=== PATIENT | female | born 1935 | race Caucasian/White ===

== ENCOUNTER → 2019-07-20 12:23 | Outpatient (CLI) | payer MEDICARE, SELFPAY ==
--- NOTE | 2019-07-20 12:31 | XR_ITS ---
PROCEDURE: XR FOOT WT BEARING LT 3V CLINICAL INDICATION: fracture follow up COMPARISON: XR FOOT LT MIN 3V from 06/20/2019 FINDINGS: There are continued fractures of distal shafts of the 4th and 5th metatarsals. There has been some interval development of medial angulation and increased diastasis of the distal fracture fragment of the 5th metatarsal. Alignment of 4th metatarsal is unchanged. There is diffuse demineralization. 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 Degenerative plantar calcaneal spurring is noted. IMPRESSION: Continued fractures distal 4th and 5th metatarsals with little if any significant interval healing and with some interval medial angulation and increased distraction of the distal 5th metatarsal fracture fragment Dictated by: Duc Rowe 07/20/2019 13:01 Electronically signed by Duc Rowe in [place] 07/20/2019 13:01
== END ==
PROVIDERS: Visit Provider Podiatrist
DX: S92.342A Displaced fracture of fourth metatarsal bone, left foot, initial encounter for closed fracture (principal); S92.355A Nondisplaced fracture of fifth metatarsal bone, left foot, initial encounter for closed fracture; T14.8XXA Other injury of unspecified body region, initial encounter
CPT/HCPCS: 73630

== ENCOUNTER → 2019-08-16 13:45 | Outpatient (CLI) | payer MEDICARE, SELFPAY ==
--- NOTE | 2019-08-16 13:59 | XR_ITS ---
PROCEDURE: XR FOOT WT BEARING LT 3V CLINICAL INDICATION: fracture follow up Pain, follow-up fracture COMPARISON: XR FOOT LT MIN 3V from 06/20/2019 XR FOOT WT BEARING LT 3V from 07/20/2019 FINDINGS: There is diffuse osteopenia with moderate hallux valgus and osteoarthritis of the 1st MTP joint with bunion formation at the distal aspect of the 1st metatarsal. Healing fractures are present involving the distal aspect of the 4th and 5th metatarsals. Increasing callus formation is noted. There remains some medial displacement the distal 5th fracture fragment. Other findings:None. IMPRESSION: Healing 4th and 5th metatarsal fractures Dictated by: Joaquín Allison MD 08/16/2019 14:44 Electronically signed by Joaquín Allison MD in [place] 08/16/2019 14:44
== END ==
PROVIDERS: PCP Emergency Medicine; Visit Provider Podiatrist
DX: S92.355G Nondisplaced fracture of fifth metatarsal bone, left foot, subsequent encounter for fracture with delayed healing (principal)
CPT/HCPCS: 73630

== ENCOUNTER → 2019-08-24 13:23 | Outpatient (CLI) | payer MEDICARE, SELFPAY ==
--- NOTE | 2019-08-24 | US_ITS ---
PROCEDURE: MM DIG MAMM DX UNILAT LT CAD Digital Breast Tomosynthesis Included CLINICAL INDICATION: invetrted nipple palpable mass left breast, prior left lumpectomy. COMPARISON: Mammo Diagnostic Bilat from 12/26/2017 Mammo Diagnostic Bilat from 02/02/2019 US BREAST LT COMPLETE from 08/24/2019 TECHNIQUE: Standard CC and MLO images and 3D Tomosynthesis was obtained. R2 CAD reviewed. Left breast ultrasound with axilla FINDINGS: There is average fibroglandular tissue. There postsurgical changes in the mid aspect of the left breast with clips and multiple benign-appearing calcifications. There is an oval area of fat density with a fat fluid level in the mid aspect of the left breast. This measures 3 by 1.9 cm. There is some retraction of surrounding tissue at this area. This did have a similar appearance on the mammogram of 02/02/2019. The nipple is inverted which also had a similar appearance on the previous exam. Surgical clips are present in the axilla. Left breast ultrasound: There is a ill-defined hypoechoic area in the 12 o'clock region left breast near the nipple measuring 3 x 1.5 cm likely corresponding to the lesion described on the mammogram with a fat fluid level. This likely represents a hematoma. There are surgical clips in this area on the ultrasound as well. IMPRESSION: Postsurgical changes of the left breast as described above. No convincing evidence of malignancy. Probably benign findings. Suggest 6 month mammogram and sonographic follow-up BI-RAD Category: 3 Probably Benign Finding Short Term Follow-up FOLLOW-UP: 6M 6Month Follow-up (A letter has been sent to the patient regarding results of the study.) Dictated by: Joaquín Allison MD 09/01/2019 09:08 Electronically signed by Joaquín Allison MD in [place] 09/01/2019 09:08
== END ==
PROVIDERS: PCP Emergency Medicine; Visit Provider Nurse Practitioner Family
DX: C50.919 Malignant neoplasm of unspecified site of unspecified female breast (principal); N64.59 Other signs and symptoms in breast
CPT/HCPCS: 76641; 77061; 77065; G0279

== ENCOUNTER 2019-08-31 11:56 | Observation (INO) | payer MEDICARE, SELFPAY ==
[2019-08-31 11:57] VITALS: BP 132/85; PULSE 80; RESP 20; TEMP 37; O2SAT 98; BMI 25.8
[2019-08-31 12:02] VITALS: BMI 25.8
[2019-08-31 12:20] LABS: Basophils # 0.1 K/mm3 (0-0.2); Basophils % 0.9 % (0.1-2.0); Eosinophils # 0.2 K/mm3 (0.0-0.4); Eosinophils % 2.6 % (0.1-12.0); Hematocrit 47.4 % (37.0-47.0); Hemoglobin 15.3 g/dL (12.2-16.2); Lymphocytes # 2.6 K/mm3 (0.7-4.5); Lymphocytes % 37.9 % (10-50); Mean Corpuscular HGB Conc 32.2 g/dL (31.8-35.4); Mean Corpuscular Volume 93.1 fl (81-99); Mean Platelet Volume 7.9 fl (7.4-10.4); Monocytes # 0.5 K/mm3 (0.1-1.0); Neutrophils # 3.5 K/mm3 (1.8-7.8); Neutrophils % 51.5 % (37.0-80.0); Platelet Count 382 K/mm3 (142-424); Red Blood Count 5.09 M/mm3 (4.20-5.40); Red Cell Distribution Width 13.8 % (11.5-17.5); White Blood Count 6.8 K/mm3 (4.8-10.8)
[2019-08-31 12:25] LABS: Chloride 98 mmol/L (98-107); Potassium 3.5 mmoL/L (3.5-5.1); Sodium 138 mmol/L (136-145)
[2019-08-31 12:28] LABS: Alanine Aminotransferase 20 U/L (12-78); Albumin Level 4.8 g/dl (3.5-5.0); Albumin/Globulin Ratio 1.5 (1.1-1.8); Alkaline Phosphatase 101 U/L (38-126); Aspartate Amino Transferase 31 U/L (14-36); Bilirubin,Total 0.5 mg/dl (0.2-1.3); Blood Urea Nitrogen 8 mg/dl (7-17); Calcium 9.9 mg/dl (8.4-10.2); Carbon Dioxide 34 mmol/L (22.0-30.0); Creatinine Clearance Estimated 48 mL/min (50-200); Estimated Glomerular Filt Rate 118 ml/min (>60); GFR (African American) 142 ML/MIN (>60); Globulin 3.1 g/dL (1.3-3.2); Glucose 140 mg/dl (74-100); Lactic Acid 1.6 mmol/L (0.7-2.1); Total Protein,Serum 7.9 g/dl (6.3-8.2)
[2019-08-31 12:29] LABS: Ethyl Alcohol < 10 mg/dl (0-10)
--- NOTE | 2019-08-31 13:03 | HMH.EDGENADL ---
ED Disposition Clinical Impression: Anxiety Disposition: Home, Self-Care Condition on Discharge: Good Instructions: DI for Altered Mental Status Referrals: Shamar Hoover MD [Primary Care Provider] - - Critical Care Critical Care Time: No Attestation: On 08/31/19, the high probability of a clinically significant, sudden or life threatening deterioration of the following system(s) required my full and direct attention, intervention and personal management. The time I documented below is in addition to time spent performing reported procedures but includes the following listed in this critical care notation. Medical Decision Making - Medical Records Medical records reviewed: Yes: I reviewed the patient's medical records. - Ever Inquiry Pt receiving controlled substance: No Vital Signs: 08/31/19 11:57 Temperature 98.6 F Temperature Source Oral Pulse Rate [Right] 80 Respiratory Rate 20 Blood Pressure [Right Arm] 132/85 Blood Pressure Mean [Right Arm] 100 02 Sat by Pulse Oximetry 98 - Lab Data Lab results reviewed: Yes: I reviewed the patient's lab results. Lab Results 08/31/19 12:00: WBC 6.8, RBC 5.09, Hgb 15.3, Hct 47.4 H, MCV 93.1, MCH 30.0, MCHC 32.2, RDW 13.8, Plt Count 382, MPV 7.9, Neut % (Auto) 51.5, Lymph % (Auto) 37.9, [place] % (Auto) 7.0, Eos % (Auto) 2.6, Baso % (Auto) 0.9, Neut # (Auto) 3.5, Lymph # (Auto) 2.6, [place] # (Auto) 0.5, Eos # (Auto) 0.2, Baso # (Auto) 0.1 08/31/19 12:00: Sodium 138, Potassium 3.5, Chloride 98, Carbon Dioxide 34 H, BUN 8, Creatinine 0.50 L, Estimated Creat Clear 48, Estimated GFR 118, Est GFR ( Amer) 142, Glucose 140 H, Calcium 9.9, Total Bilirubin 0.5, AST 31, ALT 20, Alkaline Phosphatase 101, Total Protein 7.9, Albumin 4.8, Globulin 3.1, Albumin/Globulin Ratio 1.5 08/31/19 12:00: Lactate 1.6 08/31/19 12:00: Plasma/Serum Alcohol < 10 Result diagrams: 08/31/19 12:00 08/31/19 12:00 Orders (Tests/Meds): ORDERS Category Date Time Status Comprehensive Metabolic Panel Stat Lab 08/31/19 12:00 Results Drug Screen,Urine Stat Lab 08/31/19 12:02 Ordered Troponin I Q3H Lab 08/31/19 15:15 Ordered Troponin I Q3H Lab 08/31/19 18:15 Ordered Blood Culture Stat Micro 08/31/19 12:00 Received ECG Request by /Dyan Stat Y 08/31/19 12:03 Stop Req Medical Decision Narrative: Patient improved with some IV Ativan. She states she feels much better and more relaxed. General Adult HPI - General Chief complaint: Altered Mental Status Stated complaint: confusion Time Seen by Provider: 08/31/19 13:03 Mode of Arrival: EMS Source of Information: Patient Limitations: No Limitations Description of Symptoms (Recalled from ER Triage Doc. by RN): Pt states she is unable to recall the past 3 days, she is unaware of tonya has happened or where she has been. Pt states she came here to the doctor on the 8th but doesnt remember after that. Pt also c/o soa. - History of Present Illness HPI narrative: 83-year-old female presents to the ED with acute anxiety. Originally they thought that she was confused but patient is alert and oriented x4 she remembers very well and has great recall for 82. She states this anxiety is temporary secondary to her living situation and then the possibility of having breast cancer in the left breast. Otherwise patient denies any recent fever shakes or chills. Patient denies any nausea vomiting diarrhea patient denies any sore throat headache cough shortness of breath. - Related Data Home Medications Medication Instructions Recorded Confirmed Amlodipine Besylate [Amlodipine 5 mg PO DAILY 06/20/19 08/27/19 5mg tab] Anastrozole 1 mg PO DAILY 06/20/19 08/27/19 Atorvastatin Calcium [Atorvastatin 40 mg PO DAILY 06/20/19 08/27/19 40mg Tab] Docusate Sodium [Docusate Sodium 100 mg PO DAILY 06/20/19 08/27/19 100mg Cap] Levothyroxine Sodium 50 mcg PO DAILY 06/20/19 08/27/19 [Levothyroxine 50mcg (0.05mg) Tab] Mem
--- NOTE | 2019-08-31 14:48 | PC.NURSE ---
Nebryant here to poultry picking machine tender pt request to speak to care management in regard to putting pt in a longterm, notified Gabby in CM
[2019-08-31 15:42] LABS: Barbiturates Screen,Urine Negative ng/ml (<200); Microscopic, Urine URINE MICROSCOPIC (MICROSCOPIC)
[2019-08-31 15:43] LABS: Amphetamine/Metha Screen,Urine Negative ng/ml (<1000); Benzodiazepines Screen,Urine Negative ng/ml (<200)
[2019-08-31 15:44] LABS: Methadone Screen,Urine Negative ng/ml (<300)
[2019-08-31 15:45] LABS: Appearance,Urine CLEAR (Clear); Bilirubin,Urine Negative (Negative); Blood, Urine Negative (Negative); Cannabinoid Screen,Urine Negative ng/ml (<50); Cocaine Screen,Urine Negative ng/ml (<300); Color,Urine YELLOW (Yellow); Glucose,Urine (UA) 1+ (Negative); Ketones,Urine Negative (Negative); Leukocyte Esterase,Urine Negative (Negative); Nitrate,Urine Negative (Negative); Protein,Urine TRACE (Negative); Urobilinogen,Urine 0.2 EU/dl (0.2)
[2019-08-31 15:46] LABS: Opiate Screen,Urine Negative ng/ml (<300); Phencyclidine Screen,Urine Negative ng/ml (<25)
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
[2019-08-31 15:54] LABS: Bacteria,Urine Trace /lpf
--- NOTE | 2019-08-31 15:58 | PC.NURSE ---
spoke with care management and she advised that she had put a call out to APS and was waiting for a callback
--- NOTE | 2019-08-31 16:30 | PC.NURSE ---
PT CONTINUOUSLY LEAVING HER ROOM AND COMING TO THE NURSE'S STATION. PT HAS SHOWED HER BREAST MULTIPLE TIMES TO THE STAFF AT THE NURSE'S STATION SHE SPEAKS ABOUT HER BREAST CANCER. PT HAS REQUESTED FOR PAPER SO THAT SHE CAN WRITE LETTERS TO HER FAMILY MEMBERS. PT CONTINUES TO INFORM STAFF THAT SHE IS CONFUSED AND FORGETFUL. PT HAS BEEN REDIRECTED INTO HER ROOM MULTIPLE TIMES BY SEVERAL STAFF MEMBERS AND REMINDED TO PLACE HER MASK ON. PT CONTINUES TO WALK OUT TO NURSE'S STATION, WITHOUT MASK IN PLACE, AND ASKING REPETETIVE QUESTIONS.
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
--- NOTE | 2019-08-31 17:58 | PC.NURSE ---
WILLIAM WEST PRESENT AND STATES THAT SHE HAS SPOKEN AGAIN WITH THE POLICE AND THEY WILL NOT BE TRANSPORTING PT BACK HOME. WILLIAM HAS ALSO SPOKEN WITH DR YORK. ER MD WILL SPEAK WITH DR YORK AND PT IS GOING TO BE ADMITTED UNDER OBSERVATION AND CARE MANAGEMENT WILL PLAN TO WORK ON PLACEMENT TOMORROW.
--- NOTE | 2019-08-31 17:58 | PC.NURSE ---
yomi ayala was here and informed the pt. she was going to be admitted
--- NOTE | 2019-08-31 18:12 | PC.NURSE ---
Dr Noy velez
--- NOTE | 2019-08-31 18:14 | PC.NURSE ---
PAGING DR QUIROZ AT THIS TIME BECAUSE HE IS NUCLEAR PHYSICIAN FOR DR YORK
--- NOTE | 2019-08-31 18:36 | PC.NURSE ---
spoke with Dr Villafuerte he agrees to admit for Dr Hoover for AMS
--- NOTE | 2019-08-31 19:29 | PC.NURSE ---
RN giving report to med/surg
[2019-08-31 19:30] VITALS: BP 112/75; PULSE 65; RESP 16; TEMP 36.7; O2SAT 99
[2019-08-31 19:49] VITALS: BP 106/81; PULSE 92; RESP 17; TEMP 36.9; O2SAT 95; BMI 21.7
--- NOTE | 2019-08-31 19:49 | PC.NURSE ---
Patient arrived to floor via wheelchair from ED
--- NOTE | 2019-08-31 20:00 | CT_ITS ---
PROCEDURE: CT HEAD/BRAIN WO CON CLINICAL INDICATION: altered mental status Altered mental status, altered level of consciousness, confusion, disorientation COMPARISON: CT HEAD/BRAIN WO CON from 06/20/2019 TECHNIQUE: Axial images obtained. All CT scans at the facility use one or more dose reduction, viz: automated exposure control, ma/kV adjustment per patient size (including targeted exams where dose is matched to indication, i.e. head), or iterative reconstruction technique. FINDINGS: No midline shift, mass effect, intracranial hemorrhage, hydrocephalus, or extra-axial fluid collection is evident. There is generalized atrophy with hypoattenuation of the periventricular white matter consistent with microangiopathic changes. The calvarium has an unremarkable appearance. No mastoid effusion. No sinus air-fluid level. IMPRESSION: No acute intracranial finding Dictated by: Joaquín Allison MD 09/01/2019 08:00 Electronically signed by Joaquín Allison MD in [place] 09/01/2019 08:00
[2019-08-31 20:30] VITALS: O2SAT 95
[2019-08-31 20:50] LABS: C-Reactive Protein 1.2 mg/L (0-4)
[2019-08-31 20:53] LABS: Erythrocyte Sedimentation Rate 9 mm/hr (0-30)
[2019-09-01 05:00] VITALS: BMI 21.7
--- NOTE | 2019-09-01 05:59 | PC.NURSE ---
A&OX3 BUT NEED CONSTANT REDIRECTION AND CONSTANT REMINDERS/REEDUCATION. FOR EXAMPLE EDUCATED PT ON USE TO TV REMOTE (SEPERATE FROM THE CALL LIGHT REMOTE) PT INDICATED UNDERSTANDING BUT A FEW MINUTES LATER WILL NOTIFY STAFF OF NOT BEING ABLE TO CONTROL THE TV WITH THE REMOTE (FOUND TO BE USING THE CALL LIGHT REMOTE INSTEAD OF TV REMOTE, DESPITE MULTIPLE ATTEMPTS OF EDUCATION ON USE OF TV REMOTE). SAFETY DEVICE APPLIED THIS SHIFT. LUNGS CLEAR T/O AUSCULTATION. TOLERATED RA WELL. PT HAS VOICED CONCERN OF LEFT BREAST. PT ON ADMISSION REPORTED NO HISTORY OF BREAST CANCER, BUT IS NOTED ON A CHEMO DRUG. LEFT BREAST IS NOTED WITH LUMPS, AND DIMPLING/DEFORMITY. ABDOMEN NONDISTENDED, ACTIVE BOWEL SOUNDS AUSCULTATED, SOFT AND NONTENDER PER PALPATION. PULSES +2, CAP REFILL <3SEC. VSS. WILL CONTINUE TO MONITOR.
[2019-09-01 06:12] LABS: Chloride 100 mmol/L (98-107)
[2019-09-01 06:13] LABS: Potassium 3.5 mmoL/L (3.5-5.1); Sodium 138 mmol/L (136-145)
[2019-09-01 06:15] LABS: Alanine Aminotransferase 16 U/L (12-78); Aspartate Amino Transferase 27 U/L (14-36); Blood Urea Nitrogen 7 mg/dl (7-17); Creatinine Clearance Estimated 41 mL/min (50-200); Estimated Glomerular Filt Rate 118 ml/min (>60); GFR (African American) 142 ML/MIN (>60)
[2019-09-01 06:16] LABS: Albumin Level 3.9 g/dl (3.5-5.0); Albumin/Globulin Ratio 1.5 (1.1-1.8); Alkaline Phosphatase 82 U/L (38-126); Anion Gap 7.5 mEq/L (5-15); Bilirubin,Total 0.2 mg/dl (0.2-1.3); Calcium 9.2 mg/dl (8.4-10.2); Carbon Dioxide 34 mmol/L (22.0-30.0); Globulin 2.6 g/dL (1.3-3.2); Glucose 124 mg/dl (74-100); Total Protein,Serum 6.5 g/dl (6.3-8.2)
[2019-09-01 06:43] LABS: Basophils # 0.1 K/mm3 (0-0.2); Eosinophils # 0.2 K/mm3 (0.0-0.4); Lymphocytes # 2.2 K/mm3 (0.7-4.5); Red Cell Distribution Width 13.9 % (11.5-17.5)
[2019-09-01 06:50] LABS: Basophils % 1.2 % (0.1-2.0); Eosinophils % 2.6 % (0.1-12.0); Hematocrit 40.7 % (37.0-47.0); Mean Corpuscular HGB Conc 32.4 g/dL (31.8-35.4); Mean Corpuscular Hemoglobin 30.3 pg (27.0-31.2); Mean Corpuscular Volume 93.3 fl (81-99); Monocytes # 0.5 K/mm3 (0.1-1.0); Neutrophils # 3.8 K/mm3 (1.8-7.8); Neutrophils % 56.1 % (37.0-80.0); Platelet Count 344 K/mm3 (142-424); Red Blood Count 4.36 M/mm3 (4.20-5.40); White Blood Count 6.7 K/mm3 (4.8-10.8)
[2019-09-01 06:53] LABS: Hemoglobin 13.2 g/dL (12.2-16.2)
--- NOTE | 2019-09-01 07:39 | P.CONPHA_ITS ---
[facility] Pharmacy VTE Monitoring - Patient Demographics Admission date: 08/31/19 Report Date: 09/01/19 Time: 07:39 Allergies/Adverse Reactions: Patient Allergies No Known Allergies Allergy (Verified 08/27/19 13:56) Height: 1.68 m Weight: 61.462 kg Patient Problems: Current Active Problems Anxiety (Acute) - VTE Risk Labs: VTE Related Lab Results Hgb 13.2 g/dL (12.2-16.2) D 09/01/19 05:40 Hct 40.7 % (37.0-47.0) 09/01/19 05:40 Plt Count 344 K/mm3 (142-424) 09/01/19 05:40 BUN 7 mg/dl (7-17) 09/01/19 05:40 Creatinine 0.50 mg/dl (0.52-1.04) L 09/01/19 05:40 Estimated Creat Clear 41 mL/min (50-200) 09/01/19 05:40 Was VTE Risk Assessment Performed: No VTE Score: 3 VTE Risk Level: Low Risk Clinical Trial Participant: No - Prophylaxis VTE Prophylaxis Ordered?: Yes Types of VTE Prophylaxis: TEDS Knee High Location of Applied Device: Bilateral Lower Extremeties
[2019-09-01 08:00] VITALS: BP 128/67; PULSE 73; RESP 17; TEMP 36.4; O2SAT 94
--- NOTE | 2019-09-01 08:19 | HMH.PHAINT ---
HOME MEDICATION RECONCILIATION COMPLETED USING LIST FROM DR ANUSHA JEFFERSON
--- NOTE | 2019-09-01 08:53 | HMH.HP ---
*Admission Date: 08/31/19 *Chief complaint: ams *History of present illness: 83-year-old female presents to the ED with acute anxiety and ams. Family states they thought that she was confused but patient is alert and oriented x 3. Pt told ED this anxiety is temporary secondary to her living situation and then the possibility of having a return of her breast cancer in the left breast. Otherwise patient denies any recent fever shakes or chills. Patient denies any nausea vomiting diarrhea patient denies any sore throat headache cough shortness of breath. Pt states she fell at home due to the floors being slick. Pt admitted for further work up on ams and memory. [facility] History I have reviewed the patient's past medical history: Yes Medical History: Reports:: Anxiety, Cancer, Dementia, Hyperlipidemia, Hypertension Denies:: Diabetes Mellitus Type 1, Diabetes Mellitus Type 2, Internal Pacemaker, MRSA *Have you ever received a pneumonia vaccine?: No *Have you received a flu vaccine this season?: No Other Medical History: Reports: Arthritis, Chemotherapy, Hormone Therapy, Hypothyroidism, Radiation Therapy Laterality Cases: Right: Arthroscopy Knee Other Surgeries: Yes: Cancer Surgery. No: Pacemaker Amputation: No Fractures: Yes - *Social History Educational Level: Attended [employer] Smoking Status: Former smoker Alcohol Intake: never Substance Use Type: denies use *Occupational Status:: retired Housing: apartment Household Members: none *Travel in the last 8 weeks: Inside the [place] Family Hx:: No significant family history Review of Systems - Review of Systems Review of systems:: pertinent systems reviewed and negative unless documented below - Constitutional Reports weakness, Denies fever(s) - Eyes Denies blurry vision - ENT Denies nose pain, Denies throat swelling - *Cardiovascular Denies chest pain at rest, Denies shortness of breath with activity - *Respiratory Denies chest congestion, Denies cough - *Gastrointestinal Denies nausea, Denies vomiting - *Genitourinary Denies urinary incontinence - *Musculoskeletal Denies joint pain, Denies numbness - Integumentary/Breasts Reports change in breast shape, Reports breast lump, Reports breast skin changes, Denies rash - *Neurologic Reports weakness, Denies fainting - Psychiatric Reports anxiety - Endocrine Denies excessive sweating - Hematologic/Lymphatic Denies easy bruising - Allergic/Immunologic Denies itchy eyes Meds Home Medications Medication Instructions Recorded Confirmed Type Amlodipine Besylate [Amlodipine 5 mg PO DAILY 06/20/19 08/31/19 History 5mg tab] Anastrozole 1 mg PO DAILY 06/20/19 08/31/19 History Atorvastatin Calcium [Atorvastatin 40 mg PO DAILY 06/20/19 08/31/19 History 40mg Tab] Docusate Sodium [Docusate Sodium 100 mg PO DAILY 06/20/19 09/01/19 History 100mg Cap] Levothyroxine Sodium 50 mcg PO DAILY 06/20/19 09/01/19 History [Levothyroxine 50mcg (0.05mg) Tab] Mirtazapine 30 mg PO DAILY 06/20/19 09/01/19 History buPROPion HCL [Wellbutrin SR 150mg 150 mg PO DAILY 06/20/19 08/31/19 History Tablet] Memantine HCl [Memantine 5mg 5 mg PO DAILY 09/01/19 09/01/19 History Tablet] Allergies Allergy/AdvReac Type Severity Reaction Status Date / Time No Known Allergies Allergy Verified 08/27/19 13:56 Exam Vital signs and Labs for Last 24 Hours: Temp Pulse Resp BP Pulse Ox 97.6 F 73 17 128/67 94 L 09/01/19 08:00 09/01/19 08:00 09/01/19 08:00 09/01/19 08:00 09/01/19 08:00 Laboratory Results - last 24 hr 08/31/19 12:00: WBC 6.8, RBC 5.09, Hgb 15.3, Hct 47.4 H, MCV 93.1, MCH 30.0, MCHC 32.2, RDW 13.8, Plt Count 382, MPV 7.9, Neut % (Auto) 51.5, Lymph % (Auto) 37.9, [place] % (Auto) 7.0, Eos % (Auto) 2.6, Baso % (Auto) 0.9, Neut # (Auto) 3.5, Lymph # (Auto) 2.6, [place] # (Auto) 0.5, Eos # (Auto) 0.2, Baso # (Auto) 0.1 08/31/19 12:00: Sodium 138, Potassium 3.5, Chloride 98, C
--- NOTE | 2019-09-01 09:16 | HMH.OTEV ---
OT Inpatient Evaluation Rehab OT IP Evaluation Start: 09/01/19 07:02 Freq: ONCE Status: Complete Protocol: Document 09/01/19 09:12 RAJI (Rec: 09/01/19 09:16 [id number] Rehab OT IP Assessment Subjective History Pt oriented x 3 on arrival. Pt is an 83 yo female adm via ED on 08/31/19 for AMS and fall at home. Pt has a past medical history of anxiety, CA , Dementia, HTN, and hyperlipidemia. Pt claims she was completely independent prior to her fall with IADL's and ADL's. Pt did not use any type of AE while ambulating or engaging in activities of daily living. Subjective I have been very rivas on what I am able to do. Objective Patient Orientation Person,Place,Birthday Upper Extremity Gross ROM WFL Bed Mobility bed mobility-scooting,bed mobility - supine/sit,bed mobility - rolling Assist Level Supervision/Stand by Transfer Training Sit/Stand Transfer Assist Level Supervision/Stand by Chair Transfer Ability Supervision/Stand by Chair Transfer Technique Sit to/from Ambulatory Chair Transfer Assistive Devices None Lower Body Dressing Ability Standby Assistance Rehab OT IP prob,goals,plan Problems Date of Evaluation: 09/01/19 Rehab Potential Rehab Potential Innapropriate for Skilled Therapy Discharge Plan OT Discharge Plan Pt appears to be at baseline at this time. Pt is safe to return home once medically stable. Eval Complexity Eval Charge Codes 84498 - Low Complexity G Codes G -code Required No PHYSICIAN CERTIFICATION: I certify the specified therapy services for Tosha Deana are required, authorized, and reviewed every 30 days.
--- NOTE | 2019-09-01 09:37 | HMH.PTEV ---
Physical Therapy Evaluation Rehab PT IP Evaluation Start: 09/01/19 06:59 Freq: ONCE Status: Active Protocol: Document 09/01/19 09:33 JOHN (Rec: 09/01/19 09:36 JOHN [id number]) Subjective/History History History This is the initial IP PT evalaution for Tosha Leblanc. Pt is an 83 y/o female admitted to [facility] 2nd floor from ER. Pt arrived at ER w/ c/o AMS, poor hx, and anxiety. Pt is pleasant but confused at time of IE Subjective Subjective Pt reports she feels better - still has trouble recalling where she is or where she lives Rehab PT IP Eval Objective Appearance Patient Behavior Appropriate,Cooperative, Confused Patient Orientation Name,Age,Birthday,Year Difficulty following instructions none Speech Pattern Clear,Appropriate Ambulation Patient Able to Ambulate Yes Ambulation Observation IP General Gait Pattern Observation No Deviations/Normal Ambulation Distance (feet) 50 Ambulation Assistive Device None Ambulation Ability Independent Balance Ability to Arise Able, w/o using arms Sitting Balance Steady, safe Standing Balance Narrow stance w/o support Dynamic Sitting Balance Ability Normal Dynamic Standing Balance Ability Normal Transfers Bed Transfer Ability Independent Chair Transfer Ability Independent Sit to Stand Bed Transfer Ability Independent Sit to Stand Chair Transfer Ability Independent ROM All Extremities PT ROM Status WFL MMT All Extremities PT MMT WFL Rehab PT IP prob,goals,plan Problems Date of Evaluation: 09/01/19 Rehab Potential Rehab Potential Innapropriate for Skilled Therapy Discharge Plan PT Discharge Plan Pt to dc to PC home once medically stable or return home w/ supervision. G -code Required Yes Eval Complexity Eval Charge Codes 78262 - Low Complexity G Codes PT Current Status Mobility PT Current Status Modifier CH-0% impaired, limited or restricted PT Goal Status Mobility PT Goal Status Modifer CH-0% impaired, limited or restricted PHYSICIAN CERTIFICATION: I certify the spe
--- NOTE | 2019-09-01 09:49 | SW/DCPLANNER ---
Addendum entered by Gabby Lafe 09/01/19 16:44: Facilities contacted at this time: [facility] (refused due to not having locked unit), [facility] (no beds), [facility] (no beds), [facility] (no beds), [facility] ( left), [facility] ( left), [facility] (patient information has been faxed). CM will follow up with facilities, patient, MD and Beverley RAO) in the AM. Addendum entered by Gabby Lafe 09/01/19 16:04: Beverley has called me back stating she has spoke with patients sister (Heather). Heather has agreed to placement and completing all paperwork for this patient. Heather has no preference as to which LTC this patient is admitted to. Beverley has stated that she will continue with starting the process for emergency Guardianship. Beverley has stated that LTC facilities will need to know Guardianship will be appointed for this patient at some point. Beverley has also stated that a letter will be needed by stating why this should be an emergency for patient (homeless, stuck in hospital, family will not take her back, not able to make decisions, confused, demented. This letter by must also be notarized. Once letter is completed CM is to contact Beverley and she will pick the letter up and begin the process. CM will continue to search for placement and make sure Beverley has completed letter by Dr Hoover. Addendum entered by Gabby Lafe 09/01/19 15:44: Beverley with APS has called back stating that she has been assigned this report. Beverley has stated that she will begin the investigation. Beverley is going to attempt to contact family today in hopes patient can discharge home with close family supervision until guardianship can be appointed. Beverley has stated that if family disagrees with this plan then patient will have to stay in hospital until guardian is appointed to this patient. Beverley will continue to follow up with me. Beverley CABRERA: [phone] Addendum entered by Gabby Lafe 09/01/19 14:50: Merilne with [facility] did come to evaluate this patient. Patient became more confused during evaluation by [facility]. I do feel as if patient is NOT capable to make her own decisions. [facility] has called back stating they can not accept this patient at this time due to family stating patient will need a locked down unit. I have attempted to contact patients family multiple times for the past two days with no answer or phone calls returned. Villa camacho did call me once today only to ask if the patient is still at [facility]. I have made an additional report to APS regarding this patient....patient does need assistance in making decisions. The new ID# for this report is [id number]. I will continue to follow up with [facility]/APS. Dr Hoover is aware of situation. Addendum entered by Gabby Lafe 09/01/19 11:35: I have also faxed patient information to [facility] at this time. Both [facility] and [facility] are reviewing patient information. Addendum entered by Gabby Lafe 09/01/19 11:21: Patients janice (Kathy) has called to follow up regarding this patient. I did inform janice that patient is at [facility] and personal senior living in [place] are currently investigating this patient. If patient will need a higher level of care I will contact LTC facilities. [facility] does not have any beds available at this time. [facility] does have LTC beds available. Original Note: Patient is agreeable to placement this morning. Patient was present during my visit with her this morning and answered all questions appropriately. I have spoke with Thaddeus from [facility] and she has stated that she will be to [facility] today to evaluate this patient. Patient agrees with plan. I will follow up with Thaddeus once she comes to [facility] to evaluate.
--- NOTE | 2019-09-01 14:00 | PC.NURSE ---
while in my care today- pt had a good day. pt anxious about why she needed to go anywhere except home all staff explained safety reasons. ambulates independent in room. vss. will cont. to monitor.
[2019-09-01 16:00] VITALS: BP 133/72; PULSE 88; RESP 18; TEMP 36.4; O2SAT 95
--- NOTE | 2019-09-01 16:56 | HMH.BHCONS ---
*Admission Date: 08/31/19 *Reason for consult:: confusion *History of present illness: Patient was interviewed at bedside; she is alone in her room. -she states that she is not sure why she is here -she doesn't remember how she got here; she doesn't remember the ER; nothing -she states that she thinks she got here sometime today; but can't remember -states she lives alone (this is not true) -states that she is probably here at the hospital cause someone called her on the phone and told her she had the virus going around -that she needed to come to this hospital so she could sleep and get rid of it ORIENTATION QUESTIONS: -she did not know the day of the week -when asked the month; she looked up on her calender in her room; saw it was 09-01-2019; she then counted on her hand to and August -stated it was August -would not attempt the day of August or the year. -she is aware that she was born in [birth year] -asked who the president was--'not sure' -states that she has 1 daughter -no grandkids (no collateral information here) She states that she is here to see about her breast cancer. -that she is too tired to talk about this -she states that she found out she has this from talking to women -she states 'don't you talk to women. you will find out soon' -she denies that any test was done to determine this -she states that she went to sleep; and when she woke up; she had it I asked her how old she is; she replied Justice Wise --she was reading the names written on the board in her room to me. Of the staff members. I asked again; she replied I'm 34 . -she thne asked me if I could leave her room -she states that she is so tired -and she wants to be left alone RECOMMENDATIONS: 1. Assisted living facility; or personal long term. -I do not think that Ms. Leblanc is able to care for herself at home 2. No medication changes at this time. -she does not appear to be anxious or depressed -my main concern is memory deficit and her ability to care for herself at home TIME IN: 1145 TIME OUT: 1210 [facility] History Medical History: Reports:: Anxiety, Cancer, Dementia, Hyperlipidemia, Hypertension Denies:: Diabetes Mellitus Type 1, Diabetes Mellitus Type 2, Internal Pacemaker, MRSA *Have you ever received a pneumonia vaccine?: No *Have you received a flu vaccine this season?: No Other Medical History: Reports: Arthritis, Chemotherapy, Hormone Therapy, Hypothyroidism, Radiation Therapy Laterality Cases: Right: Arthroscopy Knee Other Surgeries: Yes: Cancer Surgery. No: Pacemaker Amputation: No Fractures: Yes - *Social History Educational Level: Attended [employer] Smoking Status: Former smoker Alcohol Intake: never Substance Use Type: denies use *Occupational Status:: retired Housing: apartment Household Members: none *Travel in the last 8 weeks: Inside the [place] - Psychiatric History Pschychiatric History:: Reports:: Anxiety Family Hx:: No significant family history Review of Systems - *Neurologic Reports weakness, Denies numbness, Denies fainting Meds Home Medications Medication Instructions Recorded Confirmed Type Amlodipine Besylate [Amlodipine 5 mg PO DAILY 06/20/19 08/31/19 History 5mg tab] Anastrozole 1 mg PO DAILY 06/20/19 08/31/19 History Atorvastatin Calcium [Atorvastatin 40 mg PO DAILY 06/20/19 08/31/19 History 40mg Tab] Docusate Sodium [Docusate Sodium 100 mg PO DAILY 06/20/19 09/01/19 History 100mg Cap] Levothyroxine Sodium 50 mcg PO DAILY 06/20/19 09/01/19 History [Levothyroxine 50mcg (0.05mg) Tab] Mirtazapine 30 mg PO DAILY 06/20/19 09/01/19 History buPROPion HCL [Wellbutrin SR 150mg 150 mg PO DAILY 06/20/19 08/31/19 History Tablet] Memantine HCl [Memantine 5mg 5 mg PO DAILY 09/01/19 09/01/19 History Tablet] Allergies Allergy/AdvReac Type Severity Reaction Status Date / Time No Known Allergies Allergy Verified 08/27/19 13:56 Exam Vital signs and Labs for Last 24 Ho
--- NOTE | 2019-09-01 19:12 | PC.NURSE ---
report given to matt
[2019-09-01 20:00] VITALS: BP 123/65; PULSE 82; RESP 18; TEMP 36.8; O2SAT 94
--- NOTE | 2019-09-02 03:24 | PC.NURSE ---
A&O TO SELF, NOTED PLEASANTLY CONFUSED. PT RESTED WELL WITH EYES CLOSED T/O THIS SHIFT. DENIES SOA, PAIN, N/V/D. BILATERAL LUNGS NOTED CLEAR T/O UPON AUSCULTATION. TOLERATED RA WELL WITH NO COMPLAINTS. AMB INDEPENDENTLY TO AND FROM BATHROOM. VSS. REMAINS SAFE. CALL LIGHT WITHIN REACH. WILL CONTINUE TO MONITOR.
[2019-09-02 03:57] VITALS: BP 128/65; PULSE 70; RESP 17; TEMP 36.9; O2SAT 95
[2019-09-02 05:00] VITALS: BMI 23.3
[2019-09-02 06:04] LABS: Basophils # 0.1 K/mm3 (0-0.2); Basophils % 1.1 % (0.1-2.0); Eosinophils # 0.3 K/mm3 (0.0-0.4); Eosinophils % 4.1 % (0.1-12.0); Hemoglobin 13.4 g/dL (12.2-16.2); Lymphocytes # 2.3 K/mm3 (0.7-4.5); Lymphocytes % 37.1 % (10-50); Mean Corpuscular Hemoglobin 29.7 pg (27.0-31.2); Mean Corpuscular Volume 92.8 fl (81-99); Mean Platelet Volume 7.7 fl (7.4-10.4); Monocytes # 0.6 K/mm3 (0.1-1.0); Monocytes % 9.7 % (1.7-9.3); Platelet Count 357 K/mm3 (142-424); Red Blood Count 4.52 M/mm3 (4.20-5.40); Red Cell Distribution Width 13.9 % (11.5-17.5); White Blood Count 6.3 K/mm3 (4.8-10.8)
[2019-09-02 06:07] LABS: Chloride 101 mmol/L (98-107); Sodium 139 mmol/L (136-145)
[2019-09-02 06:10] LABS: Blood Urea Nitrogen 6 mg/dl (7-17); Creatinine Clearance Estimated 41 mL/min (50-200); Estimated Glomerular Filt Rate 118 ml/min (>60); GFR (African American) 142 ML/MIN (>60)
[2019-09-02 06:11] LABS: Calcium 9.2 mg/dl (8.4-10.2); Carbon Dioxide 35 mmol/L (22.0-30.0); Glucose 114 mg/dl (74-100)
[2019-09-02 07:29] VITALS: BP 127/55; PULSE 84; RESP 20; TEMP 36.8; O2SAT 94
--- NOTE | 2019-09-02 08:34 | XR_ITS ---
PROCEDURE: XR CHEST 2V CLINICAL HISTORY: cough Cough and congestion COMPARISON: CT THORACIC SPINE WO CON from 06/20/2019 FINDINGS: The cardiomediastinal silhouette and pulmonary vascularity are within normal limits. The lungs are clear without infiltrates, suspicious nodules, or pleural effusions. Mild kyphosis with compressive changes involving T12, T9, T8, T7, and T6 similar to the previous CT scan of 06/20/2019. Surgical clips are present in the left axilla. Age indeterminate IMPRESSION: As above, no acute finding Dictated by: Joaquín Allison MD 09/02/2019 10:00 Electronically signed by Joaquín Allison MD in [facility] 09/02/2019 10:00
--- NOTE | 2019-09-02 08:49 | HMH.ACPN2 ---
Internal Medicine - PN: Subj *Date: 09/02/19 *Time: 08:49 Interval history: doing ok- awaiting guardian - has dementia - no breast cancer current Exam Vital signs and Labs for Last 24 Hours: Temp Pulse Resp BP Pulse Ox 98.2 F 84 20 127/55 L 94 L 09/02/19 07:29 09/02/19 07:29 09/02/19 07:29 09/02/19 07:29 09/02/19 07:29 Laboratory Results - last 24 hr 09/02/19 05:45: WBC 6.3, RBC 4.52, Hgb 13.4, Hct 42.0, MCV 92.8, MCH 29.7, MCHC 32.0, RDW 13.9, Plt Count 357, MPV 7.7, Neut % (Auto) 48.0, Lymph % (Auto) 37.1, [place] % (Auto) 9.7 H, Eos % (Auto) 4.1, Baso % (Auto) 1.1, Neut # (Auto) 3.0, Lymph # (Auto) 2.3, [place] # (Auto) 0.6, Eos # (Auto) 0.3, Baso # (Auto) 0.1 09/02/19 05:45: Sodium 139, Potassium 4.0, Chloride 101, Carbon Dioxide 35 H, Anion Gap 7.0, BUN 6 L, Creatinine 0.50 L, Estimated Creat Clear 41, Estimated GFR 118, Est GFR ( Amer) 142, Glucose 114 H, Calcium 9.2 I & O for Last 24 hours: Intake & Output 08/30/19 08/31/19 09/01/19 09/02/19 11:59 11:59 11:59 11:59 Intake Total 600 / 600 720 / 720 Balance 600 / 600 720 / 720 Weight 160 lb 135 lb 8.008 oz 136 lb 6 oz - Constitutional no acute distress - *Routine HEENT Exam Head: Present: normocephalic Eye: Present: EOMI, PERRL ENT: Present: mucous membranes dry - *Routine Neck Exam Present: supple. Absent: JVD - *Routine Respiratory Exam Absent: respiratory distress - *Routine Cardiovascular Exam Present: RRR - *Routine Abdominal Exam Present: soft - *Routine Extremities Exam Absent: calf tenderness - *Routine Skin Exam Present: intact - *Routine Neurological Exam Present: alert, CN II-XII intact - Routine Psychiatric Exam Absent: good insight Assessment and Plan (1) Dementia Current visit: Yes Status: Acute Qualifiers: Dementia type: unspecified type Dementia behavioral disturbance: without behavioral disturbance Qualified Code(s): F03.90 - Unspecified dementia without behavioral disturbance Category: Medical Code(s): F03.90 - Unspecified dementia without behavioral disturbance (2) Anxiety Current visit: Yes Status: Acute Category: Medical Code(s): F41.9 - Anxiety disorder, unspecified (3) History of breast cancer Current visit: No Status: Chronic Category: Medical Code(s): Z85.3 - Personal history of malignant neoplasm of breast (4) Hyperlipidemia Current visit: No Status: Chronic Qualifiers: Hyperlipidemia type: mixed hyperlipidemia Qualified Code(s): E78.2 - Mixed hyperlipidemia Category: Medical Code(s): E78.5 - Hyperlipidemia, unspecified (5) Hypertension Current visit: No Status: Chronic Qualifiers: Hypertension type: essential hypertension Qualified Code(s): I10 - Essential (primary) hypertension Category: Medical Code(s): I10 - Essential (primary) hypertension (6) Fall Current visit: No Status: Acute Qualifiers: Encounter type: initial encounter Qualified Code(s): W19.XXXA - Unspecified fall, initial encounter Category: Medical Code(s): W19.XXXA - Unspecified fall, initial encounter
--- NOTE | 2019-09-02 10:40 | SW/DCPLANNER ---
Addendum entered by Benita Zaragoza 09/02/19 14:15: PATIENT HAS BEEN ACCEPTED TO [facility] PER NATHAN....I HAVE SPOKEN WITH DIANE POWER AT [facility] AND ALSO THE SISTER, DINA AND NIECE ANALILIA... I EXPLAINED THE IMPORTANCE OF THEM FOLLOWING THROUGH WITH GETTING MS MENJIVAR TO [facility] AFTER BEING DISCHARGED [facility] SINCE NEITHER WANT TO TAKE THE RESPONSIBILITY OF CARING FOR HER.. HER INFORMATION WAS SENT TO THE INSURANCE COMPANY THAT IS A REQUIREMENT EVEN THOUGH SHE DOESN'T NEED A SKILLED LEVEL OF CARE, [facility] STATED [employer] MAY GIVE THEM ONE WEEK SINCE SHE HAS HAD A HOSPITAL STAY..IF THEY DON'T KNOW PRECERT HER, SHE WILL BE PRIVATE PAY.. SISTER STATED PATIENT HAS MONEY TO PAY PRIVATE PAY..THE PLAN IS FOR HER TO DISCHARGE [facility] PENDING NO SETBACKS, APS HAS BEEN AWARE AND IN AGREEMENT, ANALILIA STATED SOMEONE NEEDS TO CALL WHEN SHE IS READY TO D/C.. DIANE ALSO STATED APS CAN NOT ACCEPT THIS PATIENT UNDER GUARDIANSHIP SINCE SHE HAS BEEN LIVING OUT OF STATE AND HAS TO BE A RESIDENT OF DC FOR AT LEAST 6 MONTHS... FAMILY WILL HAVE TO BE INVOLVED UNTIL THEY CAN TAKE IT TO COURT.. Original Note: CALLED [facility] THIS MORNING FOR A FOLLOWUP AND SPOKE WITH [facility] FAXED PATIENT INFORMATION AND [facility] HAS REQUESTED A COVID [address] TEST... [address] YORK HAS AGREED TO DO ONE AND I WILL FAX THE RESULTS ONCE IT IS LAB CONFIRMED.. I DID FINALLY GET AHOLD OF HER SISTER, DINA AND IT TOOK MULTIPLE TIMES FOR ME TO CALL AND SHE SAID SHE DOESN'T DRIVE AND CAN NOT COME TO GET HER AND TAKE THERE IF ACCEPTED. SHE WAS GOING TO CALL HER DAUGHTER AND SEE IF SHE WILL TAKE HER AND HELP WITH THE ADMISSION... WAITING ON THE COVID19 AND IF APPROVED AND INSURANCE CAN GIVE AN AUTH SHE WILL BE ABLE TO GO...IF NO AUTHORIZATION IS GIVEN SHE WILL NEED TO GO PRIVATE PAY.....
[2019-09-02 11:15] LABS: Adenovirus,PCR Not Detected (NotDetected); Bordetella Pertussis Not Detected (NotDetected); Chlamydophila Pneumoniae, PCR Not Detected (NotDetected); Coronavirus 19, PCR Not Detected (NotDetected); Coronavirus 229E Not Detected (NotDetected); Coronavirus NL63 Not Detected (NotDetected); Coronavirus OC43 Not Detected (NotDetected); Coronovirus HKU1,PCR Not Detected (NotDetected); Human Metapneumovirus Not Detected (NotDetected); Influenza A, PCR Not Detected (NotDetected); Influenza AH1, 2009 Not Detected (NotDetected); Influenza AH1, PCR Not Detected (NotDetected); Influenza AH3,PCR Not Detected (NotDetected); Influenza B, PCR Not Detected (NotDetected); Mycoplasma Pneumoniae, PCR Not Detected (NotDected); Parainfluenza 1, PCR Not Detected (NotDetected); Parainfluenza 2, PCR Not Detected (NotDetected); Parainfluenza 3, PCR Not Detected (NotDetected); Parainfluenza 4, PCR Not Detected (NotDetected); Respiratory Syncytial Virus Not Detected (NotDetected); Rhinovirus/Enterovirus Not Detected (NotDetected)
--- NOTE | 2019-09-02 15:18 | PC.NURSE ---
pt has been alert to slef, place, month, and year. she has been anxious and have been repeatedly asking questions regarding breast cancer. pt has been told multiple times by the MD that she does not have breast cancer. vss. will cont. to monitor.
[2019-09-02 15:39] VITALS: BP 139/82; PULSE 89; RESP 20; TEMP 37; O2SAT 96
[2019-09-02 19:54] VITALS: BP 162/75; PULSE 89; RESP 18; TEMP 36.4; O2SAT 95
[2019-09-02 20:30] VITALS: O2SAT 95
--- NOTE | 2019-09-03 03:57 | PC.NURSE ---
Addendum entered by Mandi Lovell RN 09/03/19 04:20: *short term memory impairment Original Note: Pt alert and oriented x3. Pt has short term memory. We have reoriented the pt throughout the shift about her care and she consistently asks questions about her breast and if anyone is going to do anything. Reinforced what Dr. Hoover has spoke to her about in regards to her breast. She hasn't slept well tonight. She is very restless and states she is stressed. She has mentioned concerns about her bottom dentures being misplaced, clothes at her sisters, and concerns about having breast cancer. She has also asked about a phonebook so; she can call her bank and the police. Pt is calmer once she spoke with staff about her concerns. Heart rate regular. Lung sounds bilaterally clear. Respirations normal and unlabored. Tolerated room air well. Bowel sounds heard in all 4 quadrants. Soft and nontender abdomen. No complaints of pain. No edema noted. +2 pulses noted throughout. No cough present. Lump noted to L breast. Pt received shower by SRNA. Resting comfortably in bed. VSS. No concerns at this time. Will continue to monitor.
[2019-09-03 04:00] VITALS: BP 126/76; PULSE 84; RESP 18; TEMP 36.7; O2SAT 90
[2019-09-03 05:00] VITALS: BMI 23.6
[2019-09-03 08:00] VITALS: BP 115/58; PULSE 77; RESP 16; TEMP 36.7; O2SAT 94
--- NOTE | 2019-09-03 08:31 | HMH.DCSUM ---
General - General Admission date:: 08/31/19 Discharge date: 09/03/19 HPI HPI: 83-year-old female presents to the ED with acute anxiety and ams. Family states they thought that she was confused but patient is alert and oriented x 3. Pt told ED this anxiety is temporary secondary to her living situation and then the possibility of having a return of her breast cancer in the left breast. Otherwise patient denies any recent fever shakes or chills. Patient denies any nausea vomiting diarrhea patient denies any sore throat headache cough shortness of breath. Pt states she fell at home due to the floors being slick. Pt admitted for further work up on ams and memory. Hospital Course Hospital Course: 83-year-old patient resting quietly in bed pleasantly confused alert and oriented x1, discussed discharge to [facility] patient is agreeable to this and will discharge today. 83-year-old female presents to the ED with acute anxiety and ams. Family states they thought that she was confused but patient is alert and oriented x 3. Pt told ED this anxiety is temporary secondary to her living situation and then the possibility of having a return of her breast cancer in the left breast. Otherwise patient denies any recent fever shakes or chills. Patient denies any nausea vomiting diarrhea patient denies any sore throat headache cough shortness of breath. Pt states she fell at home due to the floors being slick. Pt admitted for further work up on ams and memory. Behavioral health has seen and recommends: RECOMMENDATIONS: 1. Assisted living facility; or personal detention. -I do not think that Ms. Leblanc is able to care for herself at home 2. No medication changes at this time. -she does not appear to be anxious or depressed -my main concern is memory deficit and her ability to care for herself at home 08/[address]: IMPRESSION: No acute intracranial finding Dictated by: Dr. Allison 09/01 CXR: FINDINGS: The cardiomediastinal silhouette and pulmonary vascularity are within normal limits. The lungs are clear without infiltrates, suspicious nodules, or pleural effusions. Mild kyphosis with compressive changes involving T12, T9, T8, T7, and T6 similar to the previous CT scan of 06/20/2019. Surgical clips are present in the left axilla. Age indeterminate IMPRESSION: As above, no acute finding Dictated by: Dr. Allison, COVID-19 and viral panel negative Objective Vital signs: Temp Pulse Resp BP Pulse Ox 98.1 F 84 18 126/76 90 L 09/03/19 04:00 09/03/19 04:00 09/03/19 04:00 09/03/19 04:00 09/03/19 04:00 no acute distress - *Routine HEENT Exam Head: Present: normocephalic Eye: Present: EOMI, PERRL ENT: Present: mucous membranes moist - *Routine Neck Exam Present: full ROM, trachea midline. Absent: JVD, tracheal deviation - *Routine Respiratory Exam Present: CTA bilaterally. Absent: accessory muscle use - *Routine Cardiovascular Exam Present: RRR - *Routine Abdominal Exam Present: soft, normoactive bowel sounds. Absent: tenderness, firm - *Routine Extremities Exam Present: pulses intact. Absent: calf tenderness - *Routine Skin Exam Present: intact, warm - *Routine Neurological Exam Present: alert, altered mental status - Routine Psychiatric Exam Present: unable to assess Results Labs on day of discharge: Labs from last 24 hours 09/02/19 11:05 Chlamy pneumoniae PCR Not detected Adenovirus (PCR) Not detected B. pertussis DNA (PCR) Not detected Coronavirus OC43 (PCR) Not detected Coronavirus HKU1 (PCR) Not detected Coronavirus 229E (PCR) Not detected COVID-19 PCR Not detected Coronavirus NL63 (PCR) Not detected Human Metapneumovir PCR Not detected Influenza A (H1) PCR Not detected Influ A (H1N1/09) PCR Not detected Influenza A (H3) PCR Not detected Influenza Type A (PCR) Not detected Influenza Type B (PCR) Not detected M. pneumoniae (PCR) Not detected Parainfluenz
--- NOTE | 2019-09-03 09:08 | SW/DCPLANNER ---
Addendum entered by Gabby Wakefield 09/03/19 09:14: Patients nizakia (Kathy) has stated that she will be up here this afternoon to transport patient. Original Note: I have spoke with Sheridan from [facility]. [place] has stated that this patient has been accepted and can be admitted today. I have notified patients nurse (Lima) regarding admission to [facility] and calling report. I will contact patients janice regarding transportation and signing paperwork at [facility] today.
--- NOTE | 2019-09-03 10:09 | XR_ITS ---
PROCEDURE: XR FOOT LT MIN 3V CLINICAL INDICATION: HEALING FRACTURE COMPARISON: XR FOOT WT BEARING LT 3V from 08/16/2019 FINDINGS: Fractures of the distal 4th and 5th metatarsals are again noted. There is persistent slight medial angulation of the distal fracture fragment 5th metatarsal. There still remains unfused gap of the fracture line 5th metatarsal, there is healthy callus formation at the 4th metatarsal fracture site. Again noted is the moderate hallux valgus and bunion 1st metatarsal head. There is a moderate-sized spur of the calcaneus at the insertion of the plantar tendon. IMPRESSION: Very little if any interval change in the appearance of the fractures distal 4th and 5th metatarsals Dictated by: Dr. Gume Álvarez MD 09/03/2019 11:[address] Gume Álvarez MD in [facility] 09/03/2019 11:57
--- NOTE | 2019-09-03 10:23 | PC.NURSE ---
REPORT CALLED TO SHANNAN AT [facility]. PATIENTS DAUGHTER WILL TRANSPORT HER TO [facility] AROUND LUNCH TIME.
--- NOTE | 2019-09-03 16:23 | PC.NURSE ---
PATIENT HAS AGREED TO GO TO [facility]. [facility] HAS BEEN CALLED AND WILL TRANSPORT.
--- NOTE | 2019-09-03 17:53 | SW/DCPLANNER ---
Patient discharged to [facility] via ambulance. Family has been made aware.
--- NOTE | 2019-09-03 17:54 | PC.NURSE ---
LEFT MESSAGE FOR FAMILY (ANALILIA) TO CALL ME - GOING TO NOTIFY HER THAT PATIENT HAS LEFT OUR FACILITY AND IS GOING TO [facility] AT THIS TIME
[2019-09-06 16:14] LABS: Arsenic, Blood 7 ug/L (2-23); Lead, Blood 2 ug/dL (0-4)
[2019-09-06 16:15] LABS: Mercury, Blood None Detected ug/L (0.0-14.9)
== END 2019-09-03 17:48 ==
LOC: ER 13:07 → 2ND 18:57
PROVIDERS: Nurse Practitioner Family; Admitting Provider Internal Medicine Adolescent Medicine; Emergency Provider Family Medicine; PCP Emergency Medicine; Visit Provider Emergency Medicine
DX: F03.90 Unspecified dementia, unspecified severity, without behavioral disturbance, psychotic disturbance, mood disturbance, and anxiety (principal); E03.9 Hypothyroidism, unspecified; Z79.899 Other long term (current) drug therapy; I10 Essential (primary) hypertension; E78.5 Hyperlipidemia, unspecified; Z91.81 History of falling; Z85.3 Personal history of malignant neoplasm of breast
CPT/HCPCS: 36415; 70450; 71046; 73630; 80048; 80053; 80305; 81001; 82175; 83605; 83655; 83825; 85025; 85651; 86140; 87040; 87581; 87633; 87798; 97161; 97165; 99283; 99284; G0378

== ENCOUNTER 2019-09-04 13:15 | Observation (INO) | payer MEDICARE, SELFPAY ==
[2019-09-04 13:12] VITALS: BP 147/67; PULSE 105; RESP 20; TEMP 36.7; O2SAT 98; BMI 23.5
--- NOTE | 2019-09-04 13:27 | PC.NURSE ---
Spoke with Kleber with Care Management.
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
[2019-09-04 14:02] VITALS: BP 129/86; PULSE 79; RESP 18; TEMP 36.7; O2SAT 97
[2019-09-04 14:16] VITALS: BP 136/75; PULSE 92; RESP 18; TEMP 36.6; O2SAT 93; BMI 24.1
[2019-09-04 14:45] VITALS: O2SAT 93
[2019-09-04 16:00] VITALS: BP 166/73; PULSE 100; RESP 20; TEMP 36.5; O2SAT 93
--- NOTE | 2019-09-04 18:45 | PC.NURSE ---
Pt A&O x4 when arriving to floor, as shift has progressed she has became more confused. Pt has wondered the hallways while wearing surgical mask per hospital protocols. Staff has continued to re-orient patient multiple times and assisted patient back to room. Staff has printed out word searches to help occupy patient's time. Pt is steady on feet and is able to ambulate independently. Remains on room air. C/O breast pain when first arriving to floor, but has denied any pain since that time. No needs at this time.
[2019-09-04 20:00] VITALS: BP 123/76; PULSE 98; RESP 18; TEMP 36.4; O2SAT 95
[2019-09-05 04:00] VITALS: BP 152/86; PULSE 53; RESP 17; TEMP 36.6; O2SAT 95
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
[2019-09-05 04:59] VITALS: BMI 24.2
[2019-09-05 07:10] LABS: Basophils # 0.1 K/mm3 (0-0.2); Basophils % 1.3 % (0.1-2.0); Eosinophils # 0.2 K/mm3 (0.0-0.4); Eosinophils % 3.8 % (0.1-12.0); Hematocrit 39.9 % (37.0-47.0); Lymphocytes # 2.3 K/mm3 (0.7-4.5); Lymphocytes % 36.7 % (10-50); Mean Corpuscular HGB Conc 32.5 g/dL (31.8-35.4); Mean Corpuscular Hemoglobin 29.3 pg (27.0-31.2); Mean Platelet Volume 7.7 fl (7.4-10.4); Monocytes # 0.6 K/mm3 (0.1-1.0); Monocytes % 8.8 % (1.7-9.3); Neutrophils # 3.2 K/mm3 (1.8-7.8); Neutrophils % 49.5 % (37.0-80.0); Platelet Count 364 K/mm3 (142-424); Red Blood Count 4.44 M/mm3 (4.20-5.40); Red Cell Distribution Width 13.8 % (11.5-17.5); White Blood Count 6.4 K/mm3 (4.8-10.8)
[2019-09-05 07:16] LABS: Alanine Aminotransferase 15 U/L (12-78); Albumin Level 3.8 g/dl (3.5-5.0); Albumin/Globulin Ratio 1.4 (1.1-1.8); Alkaline Phosphatase 81 U/L (38-126); Anion Gap 5.8 mEq/L (5-15); Aspartate Amino Transferase 26 U/L (14-36); Bilirubin,Total 0.2 mg/dl (0.2-1.3); Blood Urea Nitrogen 7 mg/dl (7-17); Calcium 9.1 mg/dl (8.4-10.2); Carbon Dioxide 33 mmol/L (22.0-30.0); Chloride 101 mmol/L (98-107); Creatinine Clearance Estimated 41 mL/min (50-200); Estimated Glomerular Filt Rate 118 ml/min (>60); GFR (African American) 142 ML/MIN (>60); Globulin 2.8 g/dL (1.3-3.2); Glucose 112 mg/dl (74-100); Sodium 137 mmol/L (136-145); Total Protein,Serum 6.6 g/dl (6.3-8.2)
[2019-09-05 07:21] LABS: Potassium 2.8 mmoL/L (3.5-5.1)
[2019-09-05 08:00] VITALS: BP 138/72; PULSE 82; RESP 17; TEMP 36.5; O2SAT 95
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
--- NOTE | 2019-09-05 11:34 | HMH.PHAVTE ---
[facility] Pharmacy VTE Monitoring - Patient Demographics Admission date: 09/04/19 Report Date: 09/05/19 Time: 11:34 Allergies/Adverse Reactions: Patient Allergies No Known Allergies Allergy (Verified 08/27/19 13:56) Height: 1.6 m Weight: 61.915 kg Patient Problems: Current Active Problems Psychotic episode (Acute) - VTE Risk Labs: VTE Related Lab Results Hgb 13.0 g/dL (12.2-16.2) 09/05/19 06:15 Hct 39.9 % (37.0-47.0) 09/05/19 06:15 Plt Count 364 K/mm3 (142-424) 09/05/19 06:15 BUN 7 mg/dl (7-17) 09/05/19 06:15 Creatinine 0.50 mg/dl (0.52-1.04) L 09/05/19 06:15 Estimated Creat Clear 41 mL/min (50-200) 09/05/19 06:15 Was VTE Risk Assessment Performed: Yes VTE Score: 3 VTE Risk Level: Low Risk - Prophylaxis VTE Prophylaxis Ordered?: Yes Types of VTE Prophylaxis: TEDS Knee High Location of Applied Device: Bilateral Lower Extremeties
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
[2019-09-05 15:53] VITALS: BP 135/70; PULSE 101; RESP 18; TEMP 36.4; O2SAT 94
[2019-09-05 20:00] VITALS: BP 142/74; PULSE 104; RESP 18; TEMP 36.4; O2SAT 92
--- NOTE | 2019-09-06 03:17 | PC.NURSE ---
Pt pleasant, but confused. She stated early in shift that she had a meeting to go to tomorrow and wanted to take a shower. Pt was assisted and was administered pm meds. She then then stated she was hungry and was given a snack. After returning to pt's room, she then stated that she is leaving tomorrow and is concerned that she is going to have to go out of state and doesn't want to. She stated that she doesn't want to leave because she is taken care of here. VSS. Pt is currently resting at this time. No other concerns. Call light within reach. Safety measures in place. Will continue to monitor.
[2019-09-06 04:00] VITALS: BP 138/64; PULSE 96; RESP 16; TEMP 36.4; O2SAT 94
[2019-09-06 05:19] VITALS: BMI 24.2
[2019-09-06 08:00] VITALS: BP 163/83; PULSE 80; RESP 16; TEMP 36.6; O2SAT 92
--- NOTE | 2019-09-06 08:55 | HMH.ACPN2 ---
Internal Medicine - PN: Subj *Date: 09/06/19 *Time: 08:55 Interval history: Patient laying in bed states she is catching up on some sleep. Patient has no complaints this morning. Numerous handwritten notes on bedside table and in patients bed. Patient is pleasant answers questions appropriately Exam Vital signs and Labs for Last 24 Hours: Temp Pulse Resp BP Pulse Ox 97.8 F 80 16 163/83 H 92 L 09/06/19 08:00 09/06/19 08:00 09/06/19 08:00 09/06/19 08:00 09/06/19 08:00 I & O for Last 24 hours: Intake & Output 09/03/19 09/04/19 09/05/19 09/06/19 11:59 11:59 11:59 11:59 Intake Total 240 / 240 720 / 720 Output Total 360 / 360 Balance -120 / -120 720 / 720 Weight 136 lb 7.987 oz 136 lb 7.987 oz - Constitutional no acute distress - *Routine HEENT Exam Head: Present: normocephalic Eye: Present: PERRL ENT: Present: mucous membranes moist - *Routine Neck Exam Present: supple. Absent: lymphadenopathy - *Routine Respiratory Exam Present: CTA bilaterally - *Routine Cardiovascular Exam Present: RRR - *Routine Abdominal Exam Present: soft, normoactive bowel sounds. Absent: tenderness - *Routine Extremities Exam Absent: cyanosis, clubbing, edema - *Routine Skin Exam Present: warm. Absent: rash - *Routine Neurological Exam Present: alert, altered mental status - Routine Psychiatric Exam Present: normal affect Assessment and Plan (1) Anxiety Current visit: No Status: Acute Category: Medical Code(s): F41.9 - Anxiety disorder, unspecified (2) Dementia Current visit: No Status: Acute Qualifiers: Dementia type: unspecified type Dementia behavioral disturbance: without behavioral disturbance Qualified Code(s): F03.90 - Unspecified dementia without behavioral disturbance Category: Medical Code(s): F03.90 - Unspecified dementia without behavioral disturbance (3) Psychotic episode Current visit: Yes Status: Acute Category: Medical Code(s): F23 - Brief psychotic disorder - Assessment and plan all Dx Assessment and Plan for all problems:: Rounded with Dr. Hoover all orders per Kiko We will look into inpatient psych facilities and then transition to long-term care.
[2019-09-06 09:06] LABS: Chloride 100 mmol/L (98-107)
[2019-09-06 09:07] LABS: Potassium 3.3 mmoL/L (3.5-5.1); Sodium 137 mmol/L (136-145)
[2019-09-06 09:10] LABS: Anion Gap 8.3 mEq/L (5-15); Blood Urea Nitrogen 6 mg/dl (7-17); Calcium 8.7 mg/dl (8.4-10.2); Carbon Dioxide 32 mmol/L (22.0-30.0); Creatinine Clearance Estimated 41 mL/min (50-200); Estimated Glomerular Filt Rate 118 ml/min (>60); GFR (African American) 142 ML/MIN (>60); Glucose 102 mg/dl (74-100)
--- NOTE | 2019-09-06 09:34 | PC.NURSE ---
Dr Hoover aware patient doesn't have an IV
--- NOTE | 2019-09-06 12:58 | HMH.ORTHPN ---
Subjective Date: 09/06/19 <Amanda Benitez - 09/06/19 13:19> Time: 08:20 <Amanda Benitez - 09/06/19 13:19> Principal diagnosis: closed, non-displaced 5th metatarsal fracture <Amanda Benitez - 09/06/19 13:19> Interval history: Patient was resting in bed asleep this morning when I stopped by. So I just spoke with the nurse to let her know that when we had Ms. Leblanc get her repeat x-rays on 09/03/19 showed that the fracture on the fifth metatarsal was healing and that she can now be weight bearing as tolerated and that we will just follow-up with her as needed. <Amanda Benitez - 09/06/19 13:19> PN: Obj Ex Vital signs: Temp Pulse Resp BP Pulse Ox 98.7 F 105 H 18 143/83 H 91 L 09/06/19 16:00 09/06/19 16:00 09/06/19 16:00 09/06/19 16:00 09/06/19 16:00 <Alem Garcia - 09/06/19 19:01> Temp Pulse Resp BP Pulse Ox 97.8 F 80 16 163/83 H 92 L 09/06/19 08:00 09/06/19 08:00 09/06/19 08:00 09/06/19 08:00 09/06/19 08:00 <Amanda Benitez - 09/06/19 13:19> - Constitutional no acute distress <Amanda Benitez - 09/06/19 13:19> - Routine HEENT Exam Head: Present: normocephalic <Amanda Benitez - 09/06/19 13:19> Eye: Present: PERRL <Amanda Benitez - 09/06/19 13:19> ENT: Present: mucous membranes moist <Amanda Benitez - 09/06/19 13:19> - Routine Neck Exam Present: full ROM <Amanda Benitez - 09/06/19 13:19> - Routine Respiratory Exam Absent: accessory muscle use, respiratory distress <Amanda Benitez - 09/06/19 13:19> - Routine Cardiovascular Exam Present: RRR <Amanda Benitez - 09/06/19 13:19> - Routine Abdominal Exam Present: soft. Absent: obese <Amanda Benitez - 09/06/19 13:19> - Routine Skin Exam Present: intact, dry <Amanda Benitez 09/06/19 13:19> - Routine Neurological Exam Present: normal speech <Amanda Benitez 09/06/19 13:19> - Routine Psychiatric Exam Present: cooperative <Amanda Benitez 09/06/19 13:19> Progress Note: A&P (1) Anxiety Status: Acute Current Visit: No (2) Dementia Status: Acute Current Visit: No (3) Psychotic episode Status: Acute Current Visit: Yes (4) Closed nondisplaced fracture of fifth metatarsal bone of left foot Start date: 09/06/19 Status: Acute Current Visit: Yes <Amanda Benitez 09/06/19 13:19> (1) Anxiety Status: Acute Current Visit: No (2) Dementia Status: Acute Current Visit: No (3) Psychotic episode Status: Acute Current Visit: Yes (4) Closed nondisplaced fracture of fifth metatarsal bone of left foot Status: Acute Current Visit: Yes <Alem Garcia - 09/06/19 19:01> Assessment and Plan for All Diagnoses:: Patient had an outpatient office appt today at 1320. She was unable to make it due to her being admitted. X-rays reviewed from 09/03/19, 3 views left foot. Callus noted to 4-5th metatarsals with angulation deformity. Physician Attestation: I have read the office note that was documented by the staff and/or CHILD NURSE and agree with the documentation. <JoseAlem wong - 09/06/19 19:01> Plan: Closed nondisplaced fracture of fifth metatarsal bone of left foot with routine healing, subsequent encounter Discussed the x-rays and exam with the Nurse and patient. Pain controlled. Patient is wearing boot but walking. She sometimes uses walker. The repeat xrays from 09/03/19 show fracture healing and that she can be WBaT. 1. WBaT in short fracture boot preferably. 2. Ice and elevate for pain and swelling 3. NSAIDs as needed 4. Tubi-gauze or compression socks for swelling 5. Take vitamin D 6. F/u with Benigno Golden for PCP general exam 7. F/u with Podiatry as needed. <Amanda Benitez - 09/06/19 13:19>
--- NOTE | 2019-09-06 13:06 | SW/DCPLANNER ---
SENT INFORMATION TO [facility] TO THEIR GERIATRIC/BEHAVORIAL HEALTH UNIT TO SEE IF THIS PATIENT WOULD BE A CANDIDATE FOR THEIR UNIT... I SPOKE WITH JELENA CRUZ AND SHE WANTED TO KNOW HER DISCHARGE PLAN POST STAY THERE.. I EXPLAINED TO HER THAT FAMILY DROPPED HER HERE AT THE HOSPITAL AND STATED THEY CAN'T TAKE CARE OF HER AND SHE CAN'T GO BACK HOME WITH HER SISTER... RICK HAS BEEN SOMEWHAT INVOLVED IN THIS CASE, BUT CAN NOT MOVE FORWARD BECAUSE PATIENT HAS NOT BEEN A [place] RESIDENT TO START GUARDIANSHIP PROCEEDINGS...I CALLED THE DAUGHTER, RADHA THAT LIVES IN [place] SHE STATED HER COUSIN CAME AND GOT HER MOTHER AND TOOK EVERYTHING SHE HAD AND BROUGHT HER HERE TO [facility] AND THEN SHE WAS BROUGHT TO THE HOSPITAL AND THEY STATED THEY CAN NOT TAKE HER BACK HOME STATING THAT SHE IS TOO MUCH FOR THEM TO HANDLE.. I HAVE NOT HAD ANY LUCK GETTING FINANCIAL INFORMATION OUT OF ANY FAMILY MEMBER AND [facility] CAN NOT TAKE HER R/T HER NEEDING A GUARDIAN...I HAVE BEEN ON THE PHONE WITH APS, DIANE POWER AND SHE HAS ATTEMPTED TO CALL AN SUPERVISOR [employer]IG[employer] PROCESSING AND SEE IF HE COULD BECOME HER GUARDIAN WITHOUT GOING THROUGH THE CABINET BUT HAS NOT HEARD BACK FROM HIM.. UNTIL WE CAN FIGURE OUT ABOUT HER FINANCES AND IF SHE CAN EVEN APPLY FOR [place] MEDICAID SINCE SHE'S NOT BEEN IN [place] FOR JUST A SHORT AMOUNT OF TIME SHE WILL REMAIN HERE AT [facility].....
--- NOTE | 2019-09-06 15:16 | PC.NURSE ---
Pt is currently laying in bed writing notes at this time. 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 She expresses concern that she has breast cancer and isn't getting her meds for it. I assured her that her anastrazole had been reordered and is prescribed. She has been ambulating around her room throughout the whole shift, occasionally peeking out the door to call me into her room. She has been pleasant but confused/paranoid at times. Redirection/distraction has been successful thus far. Will continue to monitor.
[2019-09-06 16:00] VITALS: BP 143/83; PULSE 105; RESP 18; TEMP 37.1; O2SAT 91
--- NOTE | 2019-09-06 19:10 | PC.NURSE ---
report given to jeremy
[2019-09-06 19:37] VITALS: BP 124/64; PULSE 97; RESP 18; TEMP 36.5; O2SAT 94
[2019-09-07 04:00] VITALS: BP 120/62; PULSE 90; RESP 18; TEMP 36.5; O2SAT 94
[2019-09-07 05:00] VITALS: BMI 24.6
[2019-09-07 07:29] VITALS: BP 126/98; PULSE 96; RESP 18; TEMP 36.8; O2SAT 94
--- NOTE | 2019-09-07 08:04 | PC.NURSE ---
NO ACUTE CHANGES NOTED SINCE PREVIOUS SHIFT. PT RESTLESS T/O SHIFT, REQUESTED SOMETHING FOR SLEEP MULTIPLE TIMES. ADMINISTERED ATIVAN PER JUN, ONE TIME DOSE. PT WAS ABLE TO REST FOR AN HOUR OR TWO BEFORE BECOMING RESTLESS AGAIN. A&O X4. BILATERAL LUNGS NOTED CLEAR T/O UPON AUSCULTATION. TOLERATED RA WELL WITH NO COMPLAINTS. VSS. REMAINS SAFE. CALL LIGHT WITHIN REACH. WILL CONTINUE TO MONITOR.
--- NOTE | 2019-09-07 08:57 | HMH.ACPN2 ---
Internal Medicine - PN: Subj *Date: 09/07/19 *Time: 09:02 Interval history: 83-year-old patient resting quietly in bed, awakens easily to verbal stimuli. Remains pleasantly confused, alert to name only Exam Vital signs and Labs for Last 24 Hours: Temp Pulse Resp BP Pulse Ox 98.3 F 96 H 18 126/98 H 94 L 09/07/19 07:29 09/07/19 07:29 09/07/19 07:29 09/07/19 07:29 09/07/19 07:29 Laboratory Results - last 24 hr 09/06/19 05:38: Sodium 137, Potassium 3.3 L, Chloride 100, Carbon Dioxide 32 H, Anion Gap 8.3, BUN 6 L, Creatinine 0.50 L, Estimated Creat Clear 41, Estimated GFR 118, Est GFR ( Amer) 142, Glucose 102 H, Calcium 8.7 I & O for Last 24 hours: Intake & Output 09/04/19 09/05/19 09/06/19 09/07/19 23:59 23:59 23:59 23:59 Intake Total 840 / 840 480 / 480 360 / 360 Output Total 360 / 360 Balance -360 / -360 840 / 840 480 / 480 360 / 360 Weight 136 lb 8 oz 136 lb 7.987 oz 136 lb 7.987 oz 139 lb - Constitutional no acute distress - *Routine Neck Exam Present: full ROM, trachea midline. Absent: JVD, tracheal deviation - *Routine Respiratory Exam Present: CTA bilaterally. Absent: accessory muscle use - *Routine Cardiovascular Exam Present: RRR, murmur - *Routine Abdominal Exam Present: soft, normoactive bowel sounds - *Routine Extremities Exam Present: pulses intact. Absent: calf tenderness - *Routine Skin Exam Present: intact, warm. Absent: jaundice - *Routine Neurological Exam Present: alert, altered mental status - Routine Psychiatric Exam Present: unable to assess Assessment and Plan (1) Anxiety Current visit: No Status: Acute Category: Medical Code(s): F41.9 - Anxiety disorder, unspecified (2) Dementia Current visit: No Status: Acute Qualifiers: Dementia type: unspecified type Dementia behavioral disturbance: without behavioral disturbance Qualified Code(s): F03.90 - Unspecified dementia without behavioral disturbance Category: Medical Code(s): F03.90 - Unspecified dementia without behavioral disturbance (3) Psychotic episode Current visit: Yes Status: Acute Category: Medical Code(s): F23 - Brief psychotic disorder (4) Closed nondisplaced fracture of fifth metatarsal bone of left foot Start date: 09/06/19 Current visit: Yes Status: Acute Category: Medical Code(s): S92.355A - Nondisplaced fracture of fifth metatarsal bone, left foot, initial encounter for closed fracture - Assessment and plan all Dx Assessment and Plan for all problems:: Rounded with Dr. Hoover, all orders per Dr. Hoover 1. Awaiting long-term placement after possible inpatient psych stay
[2019-09-07 09:35] LABS: Basophils % 0.5 % (0.1-2.0); Eosinophils # 0.3 K/mm3 (0.0-0.4); Eosinophils % 3.7 % (0.1-12.0); Hematocrit 40.7 % (37.0-47.0); Hemoglobin 12.8 g/dL (12.2-16.2); Lymphocytes # 1.9 K/mm3 (0.7-4.5); Lymphocytes % 25.9 % (10-50); Mean Corpuscular HGB Conc 31.5 g/dL (31.8-35.4); Mean Corpuscular Hemoglobin 29.2 pg (27.0-31.2); Mean Corpuscular Volume 92.9 fl (81-99); Mean Platelet Volume 7.8 fl (7.4-10.4); Monocytes # 0.6 K/mm3 (0.1-1.0); Monocytes % 7.8 % (1.7-9.3); Neutrophils # 4.5 K/mm3 (1.8-7.8); Neutrophils % 62.1 % (37.0-80.0); Platelet Count 357 K/mm3 (142-424); Red Blood Count 4.38 M/mm3 (4.20-5.40); White Blood Count 7.3 K/mm3 (4.8-10.8)
[2019-09-07 09:44] LABS: Chloride 101 mmol/L (98-107)
[2019-09-07 09:45] LABS: Potassium 3.9 mmoL/L (3.5-5.1); Sodium 137 mmol/L (136-145)
[2019-09-07 09:47] LABS: Blood Urea Nitrogen 5 mg/dl (7-17); Creatinine Clearance Estimated 42 mL/min (50-200); Estimated Glomerular Filt Rate 152 ml/min (>60); GFR (African American) 184 ML/MIN (>60)
[2019-09-07 09:48] LABS: Anion Gap 7.9 mEq/L (5-15); Calcium 8.7 mg/dl (8.4-10.2); Carbon Dioxide 32 mmol/L (22.0-30.0); Glucose 135 mg/dl (74-100)
--- NOTE | 2019-09-07 12:22 | SW/DCPLANNER ---
Addendum entered by Gabby Wakefield 09/07/19 16:46: Patient information has been faxed to Abdullahi/Walker Rajput for Lynn in admissions to review. emergency planner (Benita Campbell) did have a lengthy conversation with Beverley this afternoon. Addendum entered by Gabby Wakefield 09/07/19 15:34: I have called and left a voicemail with Beverley: APS to return my phone call. Original Note: Still waiting to hear back from APS (Beverley) regarding real estate associate attorney/guardian.
[2019-09-07 15:41] VITALS: BP 148/61; PULSE 62; RESP 20; TEMP 36.7; O2SAT 95
--- NOTE | 2019-09-07 19:15 | PC.NURSE ---
report given to jeremy
[2019-09-07 19:40] VITALS: BP 152/77; PULSE 85; RESP 17; TEMP 36.6; O2SAT 92
[2019-09-08 03:54] VITALS: BP 165/86; PULSE 89; RESP 18; TEMP 36.4; O2SAT 91
--- NOTE | 2019-09-08 03:54 | PC.NURSE ---
A&O X3, UNABLE TO SPECIFY TIME. REMAINS PLEASANTLY CONFUSED. ASKED TO SPEAK WITH THE ?CHARGE NURSE? SEVERAL TIMES. THIS RN CONSULTED WITH PT WHEN ASKED FOR THE CHARGE NURSE. PT STATES SHE IS CONFUSED AND SCARED. REASSURED PT SHE IS SAFE HERE AND NO NEED TO WORRY ABOUT HARM. REORIENTATED PT TO PLACE AND TIME DURING EPISODES OF CONFUSION T/O SHIFT. RESTED WELL WITH EYES CLOSED THROUGH AM. TOLERATED RA WELL WITH NO C/O SOA. BILATERAL LUNGS NOTED CLEAR T/O UPON AUSCULTATION. VSS. REFUSED TEDS. REMAINS SAFE. INDEPENDENT AMB IN ROOM, TOLERATES WELL. CALL LIGHT WITHIN REACH. WILL CONTINUE TO MONITOR.
[2019-09-08 05:00] VITALS: BMI 24.2
--- NOTE | 2019-09-08 07:47 | SW/DCPLANNER ---
Addendum entered by [facility] 09/08/19 14:37: [facility] has denied this patient due to behaviors. Addendum entered by Benita Zaragoza 09/08/19 14:30: CALLED [facility] TO SEE IF THEY CAN ACCEPT THIS PATIENT FOR PLACEMENT AND BOTH DECLINED... PATIENT WILL NEED A FACILITY THAT HAS A LOCKED UNIT.. MOST OF THE FACILITIES THAT I HAVE CALLED THAT HAS MEMORY UNITS IS PRIVATE PAY OR [employer]URANCE... Addendum entered by [facility] 09/08/19 14:08: [facility] has no beds available in their locked unit at this time. Addendum entered by [facility] 09/08/19 13:18: Patient information has now been faxed to [facility] in [place]. Addendum entered by [facility] 09/08/19 12:50: [facility] have stated they can not accept this patient at this time due to not having a locked unit in their facility. Addendum entered by [facility] 09/08/19 10:56: At this time Luis Pino, [facility] and [facility] are reviewing this patients information. Original Note: [facility] THIS PATIENT HAS AGREED THEY ARE WILLING TO SIGN PATIENT IN IF A BED CAN BE OBTAINED.. SHE HAD A BED AT [facility] AND WAS AGGRESSIVE WITH STAFF AND TOLD THEM SHE WAS HAVING BREAST PAIN AND THEY SENT HER BACK TO [facility] REGARDING A PAST HISTORY OF BREAST CANCER.. EVIDENTLY THERE WERE ALSO ISSUES WITH THE [facility]ECES STATING HE GO UP AND LEFT WHEN THEY WERE DOING THE ADMISSION PAPERWORK.. THERE HAS BEEN SOME CONFLICTING STORIES ABOUT THIS AND I'M NOT SURE WHAT HAPPENED BUT [facility] CAN NOT TAKE HER BACK AND STATED SHE NEEDS A LOCKED UNIT WHICH THEY CAN NOT PROVIDE.. A REFERRAL WAS SENT TO [facility] LAST EVENING IN HOPES THEY CAN TAKE THIS PATIENT...
[2019-09-08 07:54] VITALS: BP 154/80; PULSE 94; RESP 20; TEMP 36.5; O2SAT 91
--- NOTE | 2019-09-08 09:07 | HMH.ACPN2 ---
Internal Medicine - PN: Subj *Date: 09/08/19 *Time: 09:20 Interval history: Patient lying in bed with no complaints. Patient states she did not sleep very well she would like to take a nap and then she wants to get up in the chair. Exam Vital signs and Labs for Last 24 Hours: Temp Pulse Resp BP Pulse Ox 97.7 F 94 H 20 154/80 H 91 L 09/08/19 07:54 09/08/19 07:54 09/08/19 07:54 09/08/19 07:54 09/08/19 07:54 Laboratory Results - last 24 hr 09/07/19 09:15: WBC 7.3, RBC 4.38, Hgb 12.8, Hct 40.7, MCV 92.9, MCH 29.2, MCHC 31.5 L, RDW 14.0, Plt Count 357, MPV 7.8, Neut % (Auto) 62.1, Lymph % (Auto) 25.9, [place] % (Auto) 7.8, Eos % (Auto) 3.7, Baso % (Auto) 0.5, Neut # (Auto) 4.5, Lymph # (Auto) 1.9, [place] # (Auto) 0.6, Eos # (Auto) 0.3, Baso # (Auto) 0.0 09/07/19 09:15: Sodium 137, Potassium 3.9, Chloride 101, Carbon Dioxide 32 H, Anion Gap 7.9, BUN 5 L, Creatinine 0.40 L, Estimated Creat Clear 42, Estimated GFR 152, Est GFR ( Amer) 184 D, Glucose 135 H, Calcium 8.7 I & O for Last 24 hours: Intake & Output 09/05/19 09/06/19 09/07/19 09/08/19 11:59 11:59 11:59 11:59 Intake Total 240 / 240 720 / 720 720 / 720 1440 / 1440 Output Total 360 / 360 1200 / 1200 Balance -120 / -120 720 / 720 720 / 720 240 / 240 Weight 136 lb 7.987 oz 136 lb 7.987 oz 139 lb 136 lb 9 oz - Constitutional no acute distress - *Routine HEENT Exam Head: Present: normocephalic Eye: Present: PERRL ENT: Present: mucous membranes moist - *Routine Neck Exam Present: supple. Absent: lymphadenopathy - *Routine Respiratory Exam Present: CTA bilaterally - *Routine Cardiovascular Exam Present: RRR - *Routine Abdominal Exam Present: soft, normoactive bowel sounds. Absent: tenderness - *Routine Extremities Exam Absent: cyanosis, clubbing, edema - *Routine Skin Exam Present: warm. Absent: rash - *Routine Neurological Exam Present: alert - Routine Psychiatric Exam Present: normal affect Comments: Confused at times Assessment and Plan (1) Anxiety Current visit: No Status: Acute Category: Medical Code(s): F41.9 - Anxiety disorder, unspecified (2) Dementia Current visit: No Status: Acute Qualifiers: Dementia type: unspecified type Dementia behavioral disturbance: without behavioral disturbance Qualified Code(s): F03.90 - Unspecified dementia without behavioral disturbance Category: Medical Code(s): F03.90 - Unspecified dementia without behavioral disturbance (3) Psychotic episode Current visit: Yes Status: Acute Category: Medical Code(s): F23 - Brief psychotic disorder (4) Closed nondisplaced fracture of fifth metatarsal bone of left foot Start date: 09/06/19 Current visit: Yes Status: Acute Category: Medical Code(s): S92.355A - Nondisplaced fracture of fifth metatarsal bone, left foot, initial encounter for closed fracture - Assessment and plan all Dx Assessment and Plan for all problems:: Rounded with Dr. Hoover all orders per Kiko Waiting for guardianship before discharge
[2019-09-08 15:54] VITALS: BP 126/72; PULSE 103; RESP 20; TEMP 36.8; O2SAT 94
--- NOTE | 2019-09-08 16:27 | SW/DCPLANNER ---
At this time facilities that have DENIED this patient: [place], [place], [place], [facility], [facility] [place], [facility], [facility], [facility] [place], [facility], [facility], [facility], [facility] (no [facility] ), [facility] in [place], [facility] ([place]). At this time facilities reviewing referral: [facility] ([place]) fax# [phone], [facility] , [facility] in [facility] ( left), [facility] in [facility] ( left), [facility] in [facility] ( left), [facility] in [facility] ( left).
--- NOTE | 2019-09-08 19:12 | PC.NURSE ---
report given to demarcus
[2019-09-08 20:00] VITALS: BP 153/85; PULSE 104; RESP 18; TEMP 36.4; O2SAT 94
[2019-09-09 04:00] VITALS: BP 154/79; PULSE 74; RESP 17; TEMP 36.4; O2SAT 95
--- NOTE | 2019-09-09 04:47 | PC.NURSE ---
No changes over night. Pt remains A&O to name, and somewhat to place. Remains pleasantly confused on time and situation. She was somewhat restless at beginning of shift. Pt expressed to multiple staff concern about her breast cancer . Pt reassured that MD was aware and her medication was given. Pt says she wants a specialist . Pt has been redirected t/o night to her room. Pt has also made numerous attempts to call her sister in [place] . No other complaints reported to staff. Pt voiding and ambulating halls independently. VSS.
[2019-09-09 05:00] VITALS: BMI 24.2
[2019-09-09 06:30] LABS: Basophils # 0.1 K/mm3 (0-0.2); Basophils % 0.8 % (0.1-2.0); Chloride 100 mmol/L (98-107); Eosinophils # 0.3 K/mm3 (0.0-0.4); Eosinophils % 3.4 % (0.1-12.0); Hematocrit 39.6 % (37.0-47.0); Hemoglobin 12.7 g/dL (12.2-16.2); Lymphocytes % 27.8 % (10-50); Mean Corpuscular HGB Conc 32.1 g/dL (31.8-35.4); Mean Corpuscular Hemoglobin 30.5 pg (27.0-31.2); Mean Platelet Volume 7.7 fl (7.4-10.4); Monocytes # 0.4 K/mm3 (0.1-1.0); Monocytes % 5.9 % (1.7-9.3); Neutrophils # 4.5 K/mm3 (1.8-7.8); Neutrophils % 62.1 % (37.0-80.0); Platelet Count 317 K/mm3 (142-424); Red Blood Count 4.17 M/mm3 (4.20-5.40); White Blood Count 7.3 K/mm3 (4.8-10.8)
[2019-09-09 06:31] LABS: Potassium 3.9 mmoL/L (3.5-5.1); Sodium 135 mmol/L (136-145)
[2019-09-09 06:33] LABS: Blood Urea Nitrogen 8 mg/dl (7-17); Creatinine Clearance Estimated 41 mL/min (50-200); Estimated Glomerular Filt Rate 152 ml/min (>60); GFR (African American) 184 ML/MIN (>60)
[2019-09-09 06:34] LABS: Anion Gap 6.9 mEq/L (5-15); Calcium 8.8 mg/dl (8.4-10.2); Carbon Dioxide 32 mmol/L (22.0-30.0); Glucose 107 mg/dl (74-100)
[2019-09-09 08:00] VITALS: BP 112/62; PULSE 90; RESP 20; TEMP 36.4; O2SAT 93
--- NOTE | 2019-09-09 09:00 | P.PN_ITS ---
Internal Medicine - PN: Subj *Date: 09/09/19 *Time: 09:00 Interval history: Patient laying in bed states she feels well today no complaints Exam Vital signs and Labs for Last 24 Hours: Temp Pulse Resp BP Pulse Ox 97.5 F L 90 20 112/62 93 L 09/09/19 08:00 09/09/19 08:00 09/09/19 08:00 09/09/19 08:00 09/09/19 08:00 Laboratory Results - last 24 hr 09/09/19 05:58: WBC 7.3, RBC 4.17 L, Hgb 12.7, Hct 39.6, MCV 95.0, MCH 30.5, MCHC 32.1, RDW 14.0, Plt Count 317, MPV 7.7, Neut % (Auto) 62.1, Lymph % (Auto) 27.8, [place] % (Auto) 5.9, Eos % (Auto) 3.4, Baso % (Auto) 0.8, Neut # (Auto) 4.5, Lymph # (Auto) 2.0, [place] # (Auto) 0.4, Eos # (Auto) 0.3, Baso # (Auto) 0.1 09/09/19 05:58: Sodium 135 L, Potassium 3.9, Chloride 100, Carbon Dioxide 32 H, Anion Gap 6.9, BUN 8 D, Creatinine 0.40 L, Estimated Creat Clear 41, Estimated GFR 152, Est GFR ( Amer) 184, Glucose 107 H, Calcium 8.8 I & O for Last 24 hours: Intake & Output 09/06/19 09/07/19 09/08/19 09/09/19 11:59 11:59 11:59 11:59 Intake Total 720 / 720 720 / 720 1440 / 1440 1582 / 1582 Output Total 1200 / 1200 450 / 450 Balance 720 / 720 720 / 720 240 / 240 1132 / 1132 Weight 136 lb 7.987 oz 139 lb 136 lb 9 oz 136 lb 9.01 oz - Constitutional no acute distress - *Routine HEENT Exam Head: Present: normocephalic Eye: Present: PERRL ENT: Present: mucous membranes moist - *Routine Neck Exam Present: supple. Absent: lymphadenopathy - *Routine Respiratory Exam Present: CTA bilaterally - *Routine Cardiovascular Exam Present: RRR - *Routine Abdominal Exam Present: soft, normoactive bowel sounds. Absent: tenderness - *Routine Extremities Exam Present: normal capillary refill. Absent: cyanosis, clubbing, edema - *Routine Skin Exam Present: warm. Absent: rash - *Routine Neurological Exam Present: alert - Routine Psychiatric Exam Comments: Confused at times Assessment and Plan (1) Anxiety Current visit: No Status: Acute Category: Medical Code(s): F41.9 - Anxiety disorder, unspecified (2) Dementia Current visit: No Status: Acute Qualifiers: Dementia type: unspecified type Dementia behavioral disturbance: without behavioral disturbance Qualified Code(s): F03.90 - Unspecified dementia without behavioral disturbance Category: Medical Code(s): F03.90 - Unspecified dementia without behavioral disturbance (3) Psychotic episode Current visit: Yes Status: Acute Category: Medical Code(s): F23 - Brief psychotic disorder (4) Closed nondisplaced fracture of fifth metatarsal bone of left foot Start date: 09/06/19 Current visit: Yes Status: Acute Category: Medical Code(s): S92.355A - Nondisplaced fracture of fifth metatarsal bone, left foot, initial encounter for closed fracture - Assessment and plan all Dx Assessment and Plan for all problems:: Rounded with Dr. Hoover all orders per Kiko Awaiting placement
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
--- NOTE | 2019-09-09 13:09 | SW/DCPLANNER ---
A BED HAS BEEN OBTAINED IN [place], [place] IN A [facility]ERIATRIC PSYCHIAT[facility]IC FACILITY AND WILL TRANSITION TO A [facility] FACILITY. FAMILY IS NOT GOING WITH HER AND HAS CHOSEN TO GIVE CONSENT VIA TELEPHONE... I HAVE NOTIFIED APS WORKER, DIANE POWER AND INFORMED HER ON WHERE SHE IS GOING.. I HAVE SPOKEN WITH JAY MULTIPLE TIMES VIA TELEPHONE AND THE PHONE NUMBER IS TO DO A FOLLOW UP IF NEEDED.. WILL CALL NIECE WHO DID THE CONSENT AND LET HER KNOW WHEN SHE LEAVES THE HOSPITAL..
--- NOTE | 2019-09-10 19:44 | PC.NURSE ---
RECORD OPENED AND PRINTED PER DR. QUIROZ REQUEST.FOR EXHIBIT BUILDER VINICIO CALDERON.
--- NOTE | 2019-09-10 20:00 | PC.NURSE ---
I spoke with Dr. Villafuerte said he had been contacted by Bharat Rajput, daughter was requesting the name of facility where patient had been transferred to. I called phone number listed in case management note ([phone]) person answering phone stated she was not Criselda, and didn't know a Ms. Leblanc.
--- NOTE | 2019-09-10 20:16 | PC.NURSE ---
Daughter Criselda Ortega contacted Dr. Villafuerte and Bharat Rajput looking for name of facility that patient was transfered to. I spoke with Criselda @[phone] number provided by Bharat Rajput. Name and number of facility given to daughter.
== END 2019-09-09 14:05 ==
LOC: ER 13:31 → 2ND 14:05
PROVIDERS: Nurse Practitioner Family; Admitting Provider Internal Medicine Adolescent Medicine; Emergency Provider Family Medicine; PCP Emergency Medicine; Visit Provider Emergency Medicine
DX: F23 Brief psychotic disorder (principal); F03.91 Unspecified dementia, unspecified severity, with behavioral disturbance; S92.355D Nondisplaced fracture of fifth metatarsal bone, left foot, subsequent encounter for fracture with routine healing; Z87.891 Personal history of nicotine dependence; I10 Essential (primary) hypertension; E78.5 Hyperlipidemia, unspecified; Z79.890 Hormone replacement therapy; Z79.899 Other long term (current) drug therapy; E03.9 Hypothyroidism, unspecified
CPT/HCPCS: 36415; 80048; 80053; 85025; 99282; G0378